=== PATIENT | female | born 1955 | race Caucasian/White ===

== ENCOUNTER 2020-10-30 15:40 | Outpatient (REF) | payer MEDICARE, SELFPAY ==
[2020-10-30 22:37] LABS: Anion Gap 8.4 mmol/L (3-11); BUN 18 mg/dL (7-18); CO2 31.6 mmol/L (21.0-32.0); CREATININE 0.8 mg/dL (0.55-1.02); Calcium 10.3 mg/dL (8.5-10.1); Chloride 101 mmol/L (98-107); Glucose 99 mg/dL (74-106); Potassium 3.8 mmol/L (3.5-5.1); Sodium 141 mmol/L (136-145); TSH (W/Ref FT4) 2.03 uIU/mL (0.36-3.74)
[2020-10-31 16:49] LABS: Magnesium 1.8 mg/dL (1.7-2.8)
[2020-11-01 09:39] LABS: ALT 29 U/L (14-59); AST 23 U/L (15-37); Albumin 4.6 g/dL (3.4-5.0); Alkaline Phosphatase 72 U/L (46-116); Total Protein 7.2 g/dL (6.4-8.2)
== END 2020-10-30 15:41 | disposition home or self-care (01) ==
LOC: NCHCN 15:40
PROVIDERS: PCP Nurse Practitioner Family; Visit Provider Nurse Practitioner Family
DX: Z00.00 Encounter for general adult medical examination without abnormal findings (principal); I10 Essential (primary) hypertension; E78.5 Hyperlipidemia, unspecified; E03.9 Hypothyroidism, unspecified
CPT/HCPCS: 80048; 80053; 83735; 84443

== ENCOUNTER 2021-05-23 00:52 | Outpatient (CLI) | payer MEDICARE, SELFPAY ==
[2021-05-23] MEDS: Barium Sulfate 60% W/V 355 ML BTL PO (10:56)
[2021-05-23] MEDS: Barium Sulfate 700 MG TAB PO (10:57)
--- NOTE | 2021-05-23 10:57 | DI.RAD_ITS ---
Exam(s) RF BARIUM SWALLOW EXAM: RF BARIUM SWALLOW CLINICAL HISTORY: GE REFLUX DISEASE,K21.9,ASTHMA,REFLUX,DYSFUNCTION EUSTACHIAN TUBE,H69.80, TECHNIQUE: 2D and realtime digital imaging was performed. COMPARISON: No exams were available for comparison FINDINGS: Preliminary films of the chest and neck show clear lungs and normal cardiac size with no evidence of pleural effusion. Diaphragm is elevated on the right which is a nonspecific finding and of uncertain chronicity. Barium was ingested and shows a minimal esophageal web at the thoracic inlet, this is a benign findin g in the absence of obstructive symptoms. Remainder of the esophagus shows normal mucosal appearance and normal diameter period a 12 millimeter barium tablet passed easily through the esophagus into the stomach. IMPRESSION: Essentially negative barium swallow. 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 RADIATION DOSE DELIVERED: shravan Fernandez=24.9 mGy
== END 2021-05-23 01:12 ==
PROVIDERS: PCP Nurse Practitioner Family; Visit Provider Nurse Practitioner Family
DX: K21.9 Gastro-esophageal reflux disease without esophagitis (principal); J45.990 Exercise induced bronchospasm; K22.89 Other specified disease of esophagus; J31.2 Chronic pharyngitis
CPT/HCPCS: 74221

== ENCOUNTER 2021-08-27 17:11 | Outpatient (REF) | payer MEDICARE, SELFPAY ==
[2021-08-27 16:14] LABS: Bilirubin Negative (Negative); Blood Negative (Negative); Clarity Clear (Clear); Glucose Negative (Negative); Ketones Trace mg/dL (Negative); Leukocyte Esterase Negative (Negative); Nitrite Negative (Negative); Specific Gravity >= 1.030 (1.005-1.025); Urobilinogen 0.2 EU/dL (Up TO 0.2)
== END 2021-08-27 17:12 | disposition home or self-care (01) ==
LOC: LBN 17:11
PROVIDERS: PCP Internal Medicine; Visit Provider Nurse Practitioner Women's Health
DX: R39.89 Other symptoms and signs involving the genitourinary system (principal)
CPT/HCPCS: 81003

== ENCOUNTER 2022-06-19 11:41 | Outpatient (REF) | payer MEDICARE, SELFPAY ==
[2022-06-19 16:02] LABS: TSH (W/Ref FT4) 1.66 uIU/mL (0.36-3.74)
== END 2022-06-19 11:42 | disposition home or self-care (01) ==
LOC: NCHCN 11:41
PROVIDERS: PCP Internal Medicine; Visit Provider Family Medicine
DX: E83.52 Hypercalcemia (principal); E78.5 Hyperlipidemia, unspecified; E03.9 Hypothyroidism, unspecified; E66.9 Obesity, unspecified
CPT/HCPCS: 83735; 84443

== ENCOUNTER 2022-07-01 10:42 | Outpatient (REF) | payer MEDICARE, SELFPAY ==
[2022-07-01 15:11] LABS: Anion Gap 10.9 mmol/L (3-11); BUN 20 mg/dL (7-18); CO2 27.1 mmol/L (21.0-32.0); CREATININE 0.5 mg/dL (0.55-1.02); Calcium 9.7 mg/dL (8.5-10.1); Calculated LDL 153 mg/dL (<100); Chloride 101 mmol/L (98-107); Cholesterol 264 mg/dL (<200); Glucose 99 mg/dL (74-106); HDL Cholesterol 75 mg/dL (40-60); Potassium 4.8 mmol/L (3.5-5.1); Sodium 139 mmol/L (136-145); Triglyceride 181 mg/dL (<150)
== END 2022-07-01 10:43 | disposition home or self-care (01) ==
LOC: NCHCN 10:42
PROVIDERS: PCP Internal Medicine; Visit Provider Family Medicine
DX: I10 Essential (primary) hypertension (principal); E03.9 Hypothyroidism, unspecified; E83.52 Hypercalcemia; E66.9 Obesity, unspecified
CPT/HCPCS: 80048; 80061

== ENCOUNTER 2022-08-05 15:48 | Outpatient (REF) | payer MEDICARE, SELFPAY ==
[2022-08-05 14:30] LABS: ALT 36 U/L (14-59); AST 24 U/L (15-37); Albumin 4.6 g/dL (3.4-5.0); Alkaline Phosphatase 78 U/L (46-116); Anion Gap 3.3 mmol/L (3-11); BUN 21 mg/dL (7-18); Bilirubin, Total 0.5 mg/dL (0.2-1.0); CO2 33.7 mmol/L (21.0-32.0); CREATININE 0.7 mg/dL (0.55-1.02); Calcium 10.2 mg/dL (8.5-10.1); Chloride 103 mmol/L (98-107); Estimated GFR 94.15 (mL/min/1.73m2); Glucose 81 mg/dL (74-106); Potassium 4.9 mmol/L (3.5-5.1); Sodium 140 mmol/L (136-145); Total Protein 7.6 g/dL (6.4-8.2)
== END 2022-08-05 15:49 | disposition home or self-care (01) ==
LOC: NCHCN 15:48
PROVIDERS: PCP Internal Medicine; Visit Provider Family Medicine
DX: E78.00 Pure hypercholesterolemia, unspecified (principal)
CPT/HCPCS: 80053

== ENCOUNTER 2022-12-16 15:45 | Outpatient (REF) | payer MEDICARE, SELFPAY ==
[2022-12-16 16:18] LABS: FREE T4 1.25 ng/dL (0.76-1.46); TSH 1.22 uIU/mL (0.36-3.74)
[2022-12-16 22:50] LABS: T3, Total 142 ng/dL (97-169)
== END 2022-12-16 15:46 | disposition home or self-care (01) ==
LOC: NCHCN 15:45
PROVIDERS: PCP Internal Medicine; Visit Provider Family Medicine
DX: E03.9 Hypothyroidism, unspecified (principal); R30.0 Dysuria
CPT/HCPCS: 87077; 84439; 84443; 84480; 87086; 87186

== ENCOUNTER 2023-01-05 15:35 | Outpatient (REF) | payer MEDICARE, SELFPAY ==
--- OUTSIDE RECORDS SUMMARY | 2023-01-05 15:43 | XMS_ITS | CCD ---
Author Name Unknown Address [address] [place] [address] [id number] Organization Unknown Address [address] [place] [address] [id number] Care Team Providers Care Technical Documentation Specialist Name Role Phone KASSIDY RUIZ Attending Physician [phone] KASSIDY RUIZ Rounding (Secondary) Physicia n [phone] Vital Signs Unknown or Not Available. Allergies Unknown or Not Available. Procedures Unknown or Not Available. History of Immunizations Unknown or Not Available. Problems Unknown or Not Available. Results Unknown or Not Available. Active Medications Unknown or Not Available. Medications Administered During Visit Unknown or Not Available. Encounters Encounter Diagnosis Diagnosis Code Start Date Mass of soft tissue of right lower limb [id number] 12/02/2022 Social History Unknown or Not Available. Patient Decision Aids Unknown or Not Available. Discharge Instructions You were admitted to [facility] on 12/02/2022 00:00 with a principal diagnosis of Mass of soft tissue of right lower limb You were discharged from [facility] on 12/02/2022 10:26 Should you have any questions prior to discharge, please contact a member of your healthcare team. If you have left the hospital and have any questions, please contact your primary care physician. Chief Complaint and Reason For Visit Unknown or Not Available. Function Status Unknown or Not Available. Plan of Care Unknown or Not Available. Referral/Transition of Care Unknown or Not Available.
[2023-01-05 17:18] LABS: Bilirubin Negative (Negative); Blood Negative (Negative); Clarity Clear (Clear); Glucose Negative (Negative); Ketones Negative (Negative); Leukocyte Esterase Trace (Negative); Nitrite Negative (Negative); Specific Gravity 1.015 (1.005-1.025); Urobilinogen 0.2 mg/dL (Up to 0.2)
[2023-01-05 17:35] LABS: Bacteria Negative HPF (Negative); C & S Indicated? No; Crystals Negative HPF (Negative); Epithelial Cells Negative HPF (Negative); Mucus Negative (Negative); RBC 0-2 HPF (0-2); WBC 0-2 HPF (0-5)
== END 2023-01-05 15:36 | disposition home or self-care (01) ==
LOC: LBN 15:35
PROVIDERS: PCP Internal Medicine; Visit Provider Nurse Practitioner Women's Health
DX: R30.0 Dysuria (principal); B96.20 Unspecified Escherichia coli [E. coli] as the cause of diseases classified elsewhere; R82.89 Other abnormal findings on cytological and histological examination of urine
CPT/HCPCS: 81003; 81015

== ENCOUNTER 2023-06-23 21:22 | Outpatient (REF) | payer MEDICARE, SELFPAY ==
[2023-06-23 21:29] LABS: Abs Immature Grans 0.02 10^3/uL (0.0-0.06); Absolute Basophil Count 0.05 10^3/uL (0.0-0.2); Absolute Eosinophil Count 0.21 10^3/uL (0.0-0.7); Absolute Lymphocyte Count 2.04 10^3/uL (1.2-3.4); Absolute Monocyte Count 0.63 10^3/uL (0.1-0.8); Absolute Neutrophil Count 3.91 10^3/uL (1.2-6.7); Basophils % 0.7; Eosinophils % 3.1; HGB 15.5 g/dL (11.2-15.7); Immature Grans % 0.3; Lymphocytes % 29.7; MCH 28.5 pg (27.0-33.0); MCV 87 fL (80-95); MPV 10.4 fL (8.0-11.0); Monocytes % 9.2; Platelet Count 288 10^3/uL (130-400); RBC 5.43 10^6/uL (3.93-5.22); RDW 13.2 % (11.7-14.6); RDW-SD 41.5 fL; WBC 6.86 10^3/uL (4.4-10.8)
[2023-06-23 21:51] LABS: ALT 57 U/L (14-59); AST 36 U/L (15-37); Albumin 4.5 g/dL (3.4-5.0); Alkaline Phosphatase 74 U/L (46-116); Anion Gap 10.6 mmol/L (3-11); BUN 23 mg/dL (7-18); Bilirubin, Total 0.6 mg/dL (0.2-1.0); CO2 28.4 mmol/L (21.0-32.0); CREATININE 0.7 mg/dL (0.55-1.02); Calcium 9.8 mg/dL (8.5-10.1); Calculated LDL 191 mg/dL (<100); Chloride 102 mmol/L (98-107); Cholesterol 290 mg/dL (<200); Estimated GFR 93.56 (mL/min/1.73m2); Glucose 96 mg/dL (74-106); HDL Cholesterol 71 mg/dL (40-60); Potassium 3.7 mmol/L (3.5-5.1); Sodium 141 mmol/L (136-145); Triglyceride 141 mg/dL (<150)
[2023-06-23 22:03] LABS: Total Protein 7.1 g/dL (6.4-8.2)
[2023-06-24 12:24] LABS: Magnesium 1.9 mg/dL (1.8-2.4)
== END 2023-06-23 21:23 | disposition home or self-care (01) ==
LOC: NCHCN 21:22
PROVIDERS: PCP Internal Medicine; Visit Provider Family Medicine
DX: I10 Essential (primary) hypertension (principal); K21.9 Gastro-esophageal reflux disease without esophagitis; E78.5 Hyperlipidemia, unspecified; E03.9 Hypothyroidism, unspecified
CPT/HCPCS: 80053; 80061; 83735; 84443; 85025

== ENCOUNTER → 2023-07-06 05:07 | Outpatient (CLI) | payer MEDICARE, SELFPAY ==
--- NOTE | 2023-07-06 | DI.US_ITS ---
Exam(s) US PELVIS TRANSVAGINAL EXAM: US PELVIS TRANSVAGINAL CLINICAL HISTORY: PELVIC PAIN R10.2 KNOWN FIBROIDS, POST-MENOPAUSAL TECHNIQUE: Ultrasound of the pelvis was performed both transabdominal and transvaginal. COMPARISON: US US TRANSVAGINAL NON OB from 04/26/2019 FINDINGS: UTERUS: Nongravid and anteverted, Measures 6.2 cm length x 5.5 cm AP x 5.7 cm wide. There are 3 uterine fibroids again noted. The largest is posterior fundal measuring 4 x 3.2 x 3.1 cm .Another is located anterior at the fundal level measuring 3 x 3 x 3.2 cm. The 3rd is in the posteri or myometrium measuring approximately 2.4 x 3 x 2.8 cm. Endometrial thickness was not able to be delineated on today's study due to the abundant shadowing re lated to the heterogeneous myometrium and fibroids. There is no fluid in the endometrial canal. CERVIX: There are small nabothian cysts. OVARIES: Both ovaries were not identified on today's study. There is abundant bowel gas in the adnex al regions. CUL-DE-SAC: No free fluid evident. IMPRESSION: 1. Three uterine fibroids are noted measuring up to 4 cm size. The largest is located in the upper u terus posteriorly. When compared to prior measurements from outside ultrasound of April 2019 thes e appear to have slightly increased in size. The 4 cm fibroid previously exhibited largest diameter of 2.6 cm the other 2 have also slightly increased in size. 2. Endometrium was not able to be assessed due to the heterogeneous nature of the myometrium. 3. Ovaries were not identified on today's study. No free fluid evident. DATA REPOSITORY:
== END ==
PROVIDERS: PCP Internal Medicine; Visit Provider Nurse Practitioner Women's Health
DX: R10.2 Pelvic and perineal pain (principal); D25.1 Intramural leiomyoma of uterus
CPT/HCPCS: 76830; 76856

== ENCOUNTER 2024-06-12 14:41 | Outpatient (REF) | payer MEDICARE, OTHER, SELFPAY ==
[2024-06-12 15:36] LABS: ALT 56 U/L (14-59); AST 31 U/L (15-37); Albumin 4.5 g/dL (3.4-5.0); Alkaline Phosphatase 83 U/L (46-116); Anion Gap 8.2 mmol/L (3-11); BUN 21 mg/dL (7-18); Bilirubin, Total 0.4 mg/dL (0.2-1.0); CO2 32.8 mmol/L (21.0-32.0); CREATININE 0.7 mg/dL (0.55-1.02); Calcium 10.3 mg/dL (8.5-10.1); Calculated LDL 180 mg/dL (<100); Chloride 103 mmol/L (98-107); Cholesterol 290 mg/dL (<200); Estimated GFR 92.98 (mL/min/1.73m2); Ferritin 74 ng/mL (8-252); Glucose 105 mg/dL (74-106); HDL Cholesterol 71 mg/dL (>or=50); Potassium 4.3 mmol/L (3.5-5.1); Sodium 144 mmol/L (136-145); TSH (W/Ref FT4) 1.63 uIU/mL (0.36-3.74); Total Protein 7.3 g/dL (6.4-8.2); Triglyceride 195 mg/dL (<150); Vitamin B12 460 pg/mL (193-986)
[2024-06-12 16:25] LABS: Iron 94 ug/dL (50-170); Total Iron Binding Capacity 355 ug/dL (250-450); Transferrin Sat 26 % (15-50)
[2024-06-14 15:09] LABS: Lipoprotein (a) <7 nmol/L (<75)
== END 2024-06-12 14:42 | disposition home or self-care (01) ==
LOC: NCHCN 14:41
PROVIDERS: PCP Family Medicine; Visit Provider Family Medicine
DX: E78.5 Hyperlipidemia, unspecified (principal); Z12.11 Encounter for screening for malignant neoplasm of colon; K21.9 Gastro-esophageal reflux disease without esophagitis
CPT/HCPCS: 80053; 80061; 83695; 82607; 82728; 83540; 83550; 84443

== ENCOUNTER 2024-09-11 13:05 | Outpatient (CLI) | payer MEDICARE, OTHER, SELFPAY ==
[2024-09-12 10:06] LABS: Lyme Ab w Rflx to Lyme Confirm Negative (Negative)
[2024-09-14 00:20] LABS: B. miyamotoi PCR Negative (Negative); Babesia divergens/MO-1 Negative (Negative); Ehrlichia muris eauclairensis Negative (Negative)
== END 2024-09-11 13:06 | disposition home or self-care (01) ==
LOC: LBO 13:17
PROVIDERS: PCP Family Medicine; Visit Provider Physician Assistant Medical
DX: R21 Rash and other nonspecific skin eruption (principal)
CPT/HCPCS: 36415; 87798; 86618